=== PATIENT | female | born 1990 | race Caucasian/White ===

== ENCOUNTER 2021-06-29 11:40 | Observation (INO) | payer OTHER ==
[~2021-06-29] VITALS: Ht 162.6 cm; Wt 79.8 kg
== END 2021-06-29 16:00 | disposition home or self-care (01) ==
LOC: 8 EST LDRP 11:40
PROVIDERS: ADMIT Obstetrics & Gynecology; ATTEND Obstetrics & Gynecology
DX: O62.9 Abnormality of forces of labor, unspecified (principal); Z3A.38 38 weeks gestation of pregnancy
CPT/HCPCS: 59025; 76815; 76818; 99281; G0378; G0379